=== PATIENT | male | born 1990 | race Two or more races ===

== ENCOUNTER 2017-07-25 19:16 | Emergency (ER) | payer BC ==
[2017-07-25 19:37] VITALS: BP 129/69
[2017-07-25] MEDS ORDERED: DIAZEPAM INJ 10 MG/2 ML DISP.SYRIN IM ONE (20:16)
--- NOTE | 2017-07-25 20:17 | ER Document Report ---
ED Medical Screen (RME) - General Chief Complaint: Headache Stated Complaint: NECK PAIN Time Seen by Provider: 07/25/17 20:02 Mode of Arrival: Ambulatory Information source: Patient, Relative Notes: 27-year-old male with chronic migraine headaches for which she has not been evaluated in the past presents with complaints of a headache yesterday which improved this morning but now he is neck pain with range of motion. Patient denies fevers denies feeling ill I have greeted and performed a rapid initial assessment of this patient. A comprehensive ED assessment and evaluation of the patient, analysis of test results and completion of the medical decision making process will be conducted by additional ED providers. PHYSICAL EXAMINATION: GENERAL: Well-appearing, well-nourished and in no acute distress. HEAD: Atraumatic, normocephalic. EYES: Pupils equal round extraocular movements intact, conjunctiva are normal. ENT: Nares patent NECK: Normal range of motion LUNGS: No respiratory distress Musculoskeletal: Normal range of motion NEUROLOGICAL: Normal speech, normal gait. PSYCH: Normal mood, normal affect. SKIN: Warm, Dry, normal turgor, no rashes or lesions noted. TRAVEL OUTSIDE OF THE [place] IN LAST 30 DAYS: No - Related Data Allergies/Adverse Reactions: No Known Allergies Allergy (Unverified 07/25/17 19:19) Past Medical History - Social History Chew tobacco use (# tins/day): No Frequency of alcohol use: None Drug Abuse: None Renal/ Medical History: Denies: Hx Peritoneal Dialysis Past Surgical History: Reports: Hx Abdominal Surgery - mass removed Physical Exam - Vital signs Vitals: Temp Pulse Resp BP Pulse Ox 98.6 F 69 18 129/69 H 100 07/25/17 19:36 07/25/17 19:36 07/25/17 19:36 07/25/17 19:36 07/25/17 19:36 Course - Vital Signs Vital signs: Temp Pulse Resp BP Pulse Ox 98.6 F 69 18 129/69 H 100 07/25/17 19:36 07/25/17 19:36 07/25/17 19:36 07/25/17 19:36 07/25/17 19:36
--- NOTE | 2017-07-25 21:00 | RADIOLOGY REPORT (SQ) ---
EXAM DESCRIPTION: CT HEAD WITHOUT COMPLETED DATE/TIME: 07/25/2017 8:51 pm REASON FOR STUDY: headaches COMPARISON: None. TECHNIQUE: Axial images acquired through the brain without intravenous contrast. Images reviewed wi th bone, brain and subdural windows. Images stored on PACS. All CT scanners at this facility use dose modulation, iterative reconstruction, and/or weight based d osing when appropriate to reduce radiation dose to as low as reasonably achievable (ALARA). [facility]: Dose Right [facility]: CareDose [facility]: Dose Right [facility]: Teradose 4D [facility]: Cramster RADIATION DOSE: mGy. LIMITATIONS: None. FINDINGS: VENTRICLES: Normal size and contour. CEREBRUM: No masses. No hemorrhage. No midline shift. No evidence for acute infarction. Normal gra y/white matter differentiation. No areas of low density in the white matter. CEREBELLUM: No masses. No hemorrhage. No alteration of density. No evidence for acute infarction. EXTRAAXIAL SPACES: No fluid collections. No masses. ORBITS AND GLOBE: No intra- or extraconal masses. Normal contour of globe without masses. CALVARIUM: No fracture. PARANASAL SINUSES: No fluid or mucosal thickening. SOFT TISSUES: No mass or hematoma. OTHER: No other significant finding. IMPRESSION: NORMAL BRAIN CT WITHOUT CONTRAST. EVIDENCE OF ACUTE STROKE: NO. COMMENT: Quality ID # [id number]: Final reports with documentation of one or more dose reduction techniques (e.g., Automated exposure control, adjustment of the mA and/or kV according to patient size, use of iterative reconstruction technique) TECHNICAL DOCUMENTATION: JOB ID: [id number] [employer]- All Rights Reserved
--- NOTE | 2017-07-25 21:24 | ER Document Report ---
ED Headache - General Mode of Arrival: Ambulatory Information source: Patient TRAVEL OUTSIDE OF THE [place] IN LAST 30 DAYS: No - HPI Patient complains to provider of: Headache Onset: Other - 1 month ago Timing: Worse Associated symptoms: Other - see notes above - General Chief Complaint: Headache Stated Complaint: NECK PAIN Time Seen by Provider: 07/25/17 20:02 Notes: 27 year old male presents to the ED complaining of a generalized headache that started 1 month ago, but was exacerbated over this past week. Patient reports that his headache starts at the bilateral temples and radiates towards the crown of his head and down his neck. Patient was shopping earlier this week when he felt like he was going to pass out from his headache. Yesterday, the patient developed the worse headache has had the past month. Patient has been taking Advil and Aspirin to no relief, but reports that a warm bath helped mildly. This morning the patient woke up with posterior and right sided neck pain. Patient reports having blurry vision with his headache yesterday and while out shopping. Patient denies fever, chest pain, shortness of breath, nausea, vomiting, sore throat, or any recent illness. Patient explains that his headache has the same pattern as earlier in the month, but only worse. Patient denies any recent falls or accidents. (YANETH BURGESS) - Related Data Allergies/Adverse Reactions: No Known Allergies Allergy (Unverified 07/25/17 19:19) Past Medical History - General Information source: Patient, Relative - Social History Smoking Status: Never Smoker Chew tobacco use (# tins/day): No Frequency of alcohol use: Occasional Drug Abuse: None Family History: Other - Mother has history of headaches Patient has suicidal ideation: No Patient has homicidal ideation: No - Medical History Medical History: Negative Renal/ Medical History: Denies: Hx Peritoneal Dialysis Past Surgical History: Reports: Hx Abdominal Surgery - mass removed Review of Systems - Review of Systems Constitutional: No symptoms reported. denies: Fever, Recent illness EENT: See HPI, Blurred vision. denies: Throat pain Cardiovascular: No symptoms reported. denies: Chest pain Respiratory: No symptoms reported. denies: Short of breath Gastrointestinal: No symptoms reported. denies: Nausea, Vomiting Genitourinary: No symptoms reported Male Genitourinary: No symptoms reported Musculoskeletal: See HPI, Neck pain - posterior and right side Skin: No symptoms reported Hematologic/Lymphatic: No symptoms reported Neurological/Psychological: See HPI, Headaches -: Yes All other systems reviewed and negative Physical Exam - Vital signs Vitals: Temp Pulse Resp BP Pulse Ox 98.6 F 69 18 129/69 H 100 07/25/17 19:36 07/25/17 19:36 07/25/17 19:36 07/25/17 19:36 07/25/17 19:36 - Notes Notes: GENERAL: Alert, interacts well. No acute distress. HEAD: Normocephalic, atraumatic. EYES: Pupils equal, round, and reactive to light. Extraocular movements intact. ENT: Oral mucosa moist, tongue midline. Nares patent, no nasal septal hematoma, TM's intacts. Left TM is injected with clear fluid. Clear rhinorrhea. No post nasal drip. NECK: Full range of motion. Supple. Trachea midline. Enlarged left cervical lymph nodes. Posterior neck lymph nodes are not enlarged. Tenderness to palpation of the right sternocleidomastoid muscle. BACK: Tenderness to palpation of the left trapezius muscle. LUNGS: Clear to auscultation bilaterally, no wheezes, rales, or rhonchi. No respiratory distress. HEART: Regular rate and rhythm. No murmurs, gallops, or rubs. ABDOMEN: Soft, non-tender. Non-distended. Bowel sounds present in all 4 quadrants. EXTREMITIES: Moves all 4 extremities spontaneously. No edema, radial pulses 2/4 bilaterally. No cyanosis. NEUROLOGICAL: Alert and oriented x3. Normal speech. Cranial nerves II through XII grossly intact. Biceps and patellar DTRs 2+ bilaterally. Heel to fisher test normal. Finger to nose test normal. Equal Cuff Setter Lockstitch. Dorsi and plantarflexion normal. Bilateral leg raise normal. Able to walk on heels and toes without difficulty. No ataxia when standing with eyes closed and counting with serial sevens. PSYCH: Normal affect, normal mood. SKIN: Warm, dry, normal turgor. No rashes or lesions noted. (YANETH BURGESS) Course - Re-evaluation Re-evalutation: 07/25/17 21:42 CT scan of the head is negative, patient has been having chronic daily headaches for the past month, not consistent with brain tumor, subarachnoid hemorrhage or meningitis. Discussed with patient that these are actually more likely tension headaches, demonstrated suboccipital inhibition to patient and girlfriend, patient's headache is entirely gone now after administration of Valium by triage doc and neck pain is significantly improved. Patient will be discharged to home on muscle relaxers in the form of Flexeril and recommended follow-up with a neurologist should the daily headaches persist. 07/25/17 21:45 Patient does have some evidence of seasonal allergies, recommended starting Claritin. Patient agreeable to this idea. 07/25/17 21:47 OMT in the form of suboccipital inhibition was performed to one body area, this was performed on the cervical spine. Symptoms were reduced. Patient tolerated well. (NIKHIL SANCHEZ) - Vital Signs Vital signs: Temp Pulse Resp BP Pulse Ox 98.6 F 69 18 129/69 H 100 07/25/17 19:36 07/25/17 19:36 07/25/17 19:36 07/25/17 19:36 07/25/17 19:36 Discharge - Discharge Clinical Impression: Prehypertension, Somatic dysfunction of cervical region Tension headache, chronic Qualifiers: Intractability: not intractable Qualified Code(s): G44.229 - Chronic tension- type headache, not intractable Allergic rhinitis Qualifiers: Chronicity: chronic Allergic rhinitis trigger: unspecified Allergic rhinitis seasonality: seasonal Qualified Code(s): J30.2 - Other seasonal allergic rhinitis Condition: Stable Disposition: HOME, SELF-CARE Additional Instructions: Tension Headache Your problem has been diagnosed as muscle tension headache. This very common type of headache occurs because of tightness in the muscles of the head and neck. The cause may be neck or jaw joint problems, but most commonly the cause is emotional stress. The headache may last hours or days. The treatment of uncomplicated tension headaches is rest and pain medication. Often, the newer antiinflammatory pain medications are prescribed, as these also decrease the irritability of the painful tissues. Muscle relaxers , cold packs, or warm packs are sometimes helpful. Anti-anxiety medication or narcotics are sometimes needed temporarily, but are best avoided in the long run. Your doctor has evaluated your headache problem, and finds no evidence of a serious health problem as a cause for the headache. If your headache becomes more severe, or if new symptoms develop (such as fever, stiff neck, vomiting, or decreasing alertness) you should be re-examined by the physician. Prescriptions: Cyclobenzaprine HCl [Flexeril 5 mg Tablet] 5 mg PO TIDP PRN #15 tablet PRN Reason: Forms: Elevated Blood Pressure Referrals: GREY RUELAS MD [ACTIVE STAFF] - Follow up in 1 week Scribe Attestation: 07/25/17 23:23 I personally performed the services described in the documentation, reviewed and edited the documentation which was dictated to the scribe in my presence, and it accurately records my words and actions. (NIKHIL SANCHEZ) Scribe Documentation - Scribe Written by Georgia:: Georgia Tavarez, 07/25/2017 [id number] acting as scribe for :: Jadon
== END 2017-07-25 22:40 | disposition home or self-care (01) ==
LOC: ER 19:16
DX: R03.0 Elevated blood-pressure reading, without diagnosis of hypertension (principal); G44.229 Chronic tension-type headache, not intractable; J30.2 Other seasonal allergic rhinitis; H53.8 Other visual disturbances; M54.2 Cervicalgia; F45.9 Somatoform disorder, unspecified
CPT/HCPCS: 99284; 96372; 70450; J3360